=== PATIENT | female | born 1985 | race Caucasian/White ===

== ENCOUNTER 2022-01-28 05:04 | Inpatient (IN) | payer OTHER ==
[~2022-01-28 05:04] MED LIST: Lactated Ringers 1,000 ML IV SCH; Sodium Chloride 0.9% 10 ML Syringe FLUSH PRN
[2022-01-28] MEDS ORDERED: Oxytocin/Lactated Ringers 10 UNIT/1,000 ML BAG IV SCH ×3 (06:00→10:14)
[2022-01-28] MEDS ORDERED: ceFAZolin 1 GM in Sodium Chloride 0.9% 50 ML IV ONE (06:00)
[2022-01-28] MEDS ORDERED: Metoclopramide 10 MG/2 ML SDV IVPUSH ONE ×2 (06:00→07:15)
[2022-01-28] MEDS ORDERED: Citric Acid/Sodium Citrate Solution 30 ML Cup PO ONE ×2 (06:00→07:15)
[2022-01-28] MEDS ORDERED: Ondansetron 4 MG/2 ML SDV ONE (07:05)
[2022-01-28] MEDS ORDERED: Ketorolac 30 MG/ML SDV ONE (07:05)
[2022-01-28] MEDS ORDERED: Morphine PF 10 MG/10 ML SDV ONE (07:05)
[2022-01-28] MEDS ORDERED: ceFAZolin 2 GM Vial ONE (07:05)
[2022-01-28] MEDS ORDERED: Oxytocin 10 Units/1 ML SDV ONE (07:05)
[2022-01-28] MEDS ORDERED: Bupivacaine 0.5% 30 ML SDV ONE (07:11)
[2022-01-28] MEDS ORDERED: Ondansetron 4 MG/2 ML SDV IVPUSH PRN ×2 (07:15→09:17)
[2022-01-28] MEDS ORDERED: fentaNYL 100 MCG/2 ML SDV IVPUSH PRN ×2 (07:15→09:17)
[2022-01-28] MEDS ORDERED: Meperidine 50 MG/ML Vial IVPUSH PRN ×2 (07:15→09:17)
[2022-01-28] MEDS ORDERED: diphenhydrAMINE 50 MG/ML SDV IVPUSH PRN ×3 (07:15→10:14)
[2022-01-28] MEDS: Lactated Ringers 1,000 ML IV SCH ×2 (07:19→07:20)
[2022-01-28] MEDS ORDERED: ePHEDrine 50 MG/ML SDV ONE (08:03)
[2022-01-28] MEDS ORDERED: Phenylephrine HCl In 0.9% NaCl 1 MG/10 ML Vial ONE (08:05)
[2022-01-28] MEDS ORDERED: Sodium Chloride 0.9% 10 ML Syringe FLUSH SCH (09:00)
[2022-01-28] MEDS ORDERED: ePHEDrine 50 MG/ML SDV IVPUSH PRN (10:14)
[2022-01-28] MEDS ORDERED: Naloxone 0.4 MG/ML SDV IVPUSH PRN (10:14)
[2022-01-28] MEDS ORDERED: Dextrose 5%-Lactated Ringers 1,000 ML IV SCH (10:14)
[2022-01-28] MEDS ORDERED: Acetaminophen/oxyCODONE 325-5 MG Tab PO PRN (10:14)
[2022-01-28] MEDS ORDERED: Magnesium Hydroxide 400 MG/5 ML Susp 30 ML Cup PO PRN (10:14)
[2022-01-28 10:20] LABS: C. TRACHOMATIS BY PCR NOT DETECTED; N. GONORRHOEAE BY PCR NOT DETECTED
[2022-01-28] MEDS ORDERED: Lactated Ringers 1,000 ML ONE (10:46)
[2022-01-28] MEDS ORDERED: Ketorolac 30 MG/ML SDV IVPUSH SCH (14:30)
[2022-01-28] MEDS: Ketorolac 30 MG/ML SDV IVPUSH SCH (21:58)
[2022-01-28] MEDS: Docusate Sodium 100 MG Cap PO SCH (21:58)
[2022-01-29] MEDS: Ketorolac 30 MG/ML SDV IVPUSH SCH (05:01)
[2022-01-29] MEDS: Acetaminophen/oxyCODONE 325-5 MG Tab PO PRN ×2 (08:30→21:45)
[2022-01-29] MEDS: Prenatal Multivitamin with Calcium/Folic Acid/Iron Tab PO SCH (08:30)
[2022-01-29] MEDS: Docusate Sodium 100 MG Cap PO SCH ×2 (08:31→21:45)
[2022-01-29] MEDS: Ibuprofen 600 MG Tab PO PRN (15:16)
[2022-01-30] MEDS: Ibuprofen 600 MG Tab PO PRN ×2 (02:29→07:33)
[2022-01-30] MEDS: Docusate Sodium 100 MG Cap PO SCH ×2 (07:33→12:10)
[2022-01-30] MEDS: Prenatal Multivitamin with Calcium/Folic Acid/Iron Tab PO SCH ×2 (07:33→12:10)
== END 2022-01-30 09:45 | disposition home or self-care (01) | DRG 788 ==
LOC: JD.OB 05:04
PROVIDERS: ADMIT Obstetrics & Gynecology; ATTEND Obstetrics & Gynecology
PROC: 10D00Z1 Extraction of Products of Conception, Low, Open Approach (ICD-10-PCS; principal; 2022-01-28)
DX: O34.211 Maternal care for low transverse scar from previous cesarean delivery (principal); Z37.0 Single live birth; O99.62 Diseases of the digestive system complicating childbirth; K21.9 Gastro-esophageal reflux disease without esophagitis; Z3A.39 39 weeks gestation of pregnancy
CPT/HCPCS: 01961; 36415; 59025; 85025; 86592; 86762; 86850; 86870; 86900; 86901; 87491; 87591; 94762; A9270-GY; J0690; J1885; J2274; J2405; J2590; J2765; J3490; J7120; J7121